=== PATIENT | male | born 1980 | race Hispanic/Latino ===

== ENCOUNTER 2024-09-14 12:34 | Emergency (ER) | payer OTHER ==
[~2024-09-14] VITALS: Ht 175.3 cm; Wt 83.9 kg
[2024-09-14 12:35] VITALS: BP 118/82; PULSE 95; RESP 20; TEMP 101.4
[2024-09-14] MEDS: dexaMETHasone SOD PHOSPHATE 4 MG/ML 1ML VIAL IVP ONE (13:13)
[2024-09-14 13:23] LABS: BASOPHILS # (AUTO) 0.03 K/uL (0.00-0.20); BASOPHILS % (AUTO) 0.6 % (0.0-5.0); EOSINOPHILS # (AUTO) 0.02 K/uL (0.00-0.70); EOSINOPHILS % (AUTO) 0.4 % (0.0-8.0); HEMATOCRIT 45.7 % (42-54); IMMATURE GRANULOCYTE ABSOLUTE 0.02 K/uL (0-1); LYMPHOCYTES # (AUTO) 0.4 K/uL (1.0-4.8); LYMPHOCYTES % (AUTO) 7.6 % (21.0-51.0); MEAN CORPUSCULAR HEMOGLOBIN 29.9 pg (27.0-33.0); MEAN CORPUSCULAR HGB CONC 34.1 g/dL (32.0-36.0); MEAN CORPUSCULAR VOLUME 87.5 fL (79-99); MONOCYTES # (AUTO) 0.7 K/uL (0.1-1.0); MONOCYTES % (AUTO) 12.7 % (3.0-13.0); NEUTROPHILS # (AUTO) 4.2 K/uL (1.8-7.7); NEUTROPHILS % (AUTO) 78.3 % (40.0-77.0); PLATELET COUNT (AUTO) 223 K/uL (130-400); RED BLOOD CELL COUNT(AUTO) 5.22 MIL/uL (4.50-6.20); RED CELL DISTRIBUTION WIDTH 11.9 % (11.0-15.5); WHITE BLOOD COUNT (AUTO) 5.3 K/uL (4.8-10.8)
[2024-09-14 13:27] LABS: CREATININE 1.3 mg/dL (0.5-1.3); POTASSIUM 3.8 mmol/L (3.5-5.1)
--- NOTE | 2024-09-14 13:40 | ERN ---
ED Note History of Present Illness Stated Complaint: FLU LIKE SYMPTOMS Chief Complaint: Flu Symptoms Time Seen by MD: 12:44 Dictation: Patient is a 44-year-old male who presents to the ED with flu-like symptoms. He admits to having fevers, chills, joint pain, sore throat and cough. He also feels slightly nauseated, with a reduced appetite but denies any vomiting. His symptoms have lasted a few days and [id number] antihistamines and fever reducers have helped but not resolved symptoms. Patient also admits to having sinus pressure and left-sided ear pain. Allergies: Coded Allergies: No Known Drug Allergies (Unverified Allergy, Unknown, 09/14/24) Home Meds Active Scripts Ibuprofen (Ibuprofen 200 mg Tablet) 200 Mg Tablet, 2 TAB PO QID for pain or fever for 5 Days, #40 TAB 0 Refills Prov:JO CENTENO MD 09/14/24 Oseltamivir Phosphate (Tamiflu) 75 Mg Cap, 1 CAP PO BID for 5 Days, #10 CAP 0 Refills Prov:JO CENTENO MD 09/14/24 Doxycycline Hyclate (Doxycycline Hyclate) 100 Mg Tablet, 1 TAB PO BID for 10 Days, #20 TAB 0 Refills Prov:JO CENTENO MD 09/14/24 Past Medical History Past Medical History: No Pertinent History Surgical History: None Review of System Dictation Constitutional-no weight loss/gain. Positive for fevers, chills. Eyes-no injury, pain, redness and discharge ENT-no injury, swelling. Left ear pain. Cardiovascular no chest pain, palpitations, edema Respiratory no shortness of breath, wheezing. Positive for cough. Abdomen/GI-no abdominal pain, diarrhea, vomiting. Positive for nausea and constipation. Back no injury and pain Genitourinary no injury, bleeding and discharge Musculoskeletal/extremities no injury, deformity. Positive or joint pains and generalized muscle aches. Skin no rash, discoloration Neuro-no headache, weakness, numbness, tingling, seizures, tremors Psych-no suicidal ideation, homicidal ideation, hallucinations, depression, anxiety, memory loss Initial Vital Sign VS Vital Signs Date Time Temp Pulse Resp B/P (MAP) Pulse Ox O2 Delivery O2 Flow Rate FiO2 09/14/24 12:35 101.5 95 20 118/82 99 Room Air 0 Physical Exam Dictation General-patient is awake alert and oriented Head/neck-normocephalic, atraumatic Eyes-PERRL, EOMI, vision at baseline. Watery eyes. Neck-trachea midline, supple, no nuchal rigidity.Tenderness to palpation of submandibular nodes. Cardiovascular-RRR, normal S1/S2, no MRG is, no JVD Respiratory-no distress, wheezing, rales, rhonchi Abdomen-no tenderness, guarding, soft, nondistended Skin warm, dry, normal turgor, no rash Musculoskeletal/extremities pulses equal, no cyanosis Neuro-COA X 4, GCS 15, strength 5/5, CN 2-12 intact Psych-normal behavior, mood and affect normal Results (Laboratory/Radiology) Laboratory/Radiology Laboratory Tests Test 09/14/24 12:38 09/14/24 13:12 Influenza Type A Antigen Positive For Type A Influenza Type B Antigen Negative For Type B SARS-CoV-2 Antigen (Rapid) PRESUMPTIVE NEGATIVE Group A Streptococcus Rapid negative (NEGATIVE) White Blood Count 5.3 K/uL (4.8-10.8) Red Blood Count 5.22 MIL/uL (4.50-6.20) Hemoglobin 15.6 g/dL (14.0-18.0) Hematocrit 45.7 % (42-54) Mean Corpuscular Volume 87.5 fL (79-99) Mean Corpuscular Hemoglobin 29.9 pg (27.0-33.0) Mean Corpuscular Hemoglobin Concent 34.1 g/dL (32.0-36.0) Red Cell Distribution Width 11.9 % (11.0-15.5) Platelet Count 223 K/uL (130-400) Mean Platelet Volume 10.1 fL (7.5-10.5) Immature Granulocyte % (Auto) 0.4 % (0-1) Neutrophils (%) (Auto) 78.3 % (40.0-77.0) H Lymphocytes (%) (Auto) 7.6 % (21.0-51.0) L Monocytes (%) (Auto) 12.7 % (3.0-13.0) Eosinophils (%) (Auto) 0.4 % (0.0-8.0) Basophils (%) (Auto) 0.6 % (0.0-5.0) Neutrophils # (Auto) 4.2 K/uL (1.8-7.7) Lymphocytes # (Auto) 0.4 K/uL (1.0-4.8) L Monocytes # (Auto) 0.7 K/uL (0.1-1.0) Eosinophils # (Auto) 0.02 K/uL (0.00-0.70) Basophils # (Auto) 0.03 K/uL (0.00-0.20) Absolute Immature Granulocyte (auto 0.02 K/uL (0-1) Nucleated Red Blood Cells 0.0 % (0.0-0.19) White Cell Morphology Comment See comments Sodium Level 142 mmol/L (136-145) Potassium Level 3.8 mmol/L (3.5-5.1) Chloride Level 104 mmol/L (101-111) Carbon Dioxide Level 31 mmol/L (21-32) Blood Urea Nitrogen 8 mg/dL (7-18) Creatinine 1.3 mg/dL (0.5-1.3) Glomerular Filtration Rate Calc 70 mL/min (>90) Random Glucose 102 mg/dL (70-105) Total Calcium 9.0 mg/dL (8.5-10.1) X-RAY Comment: CXR: FINDINGS: Single view of the chest was obtained. Lungs are clear. Heart size is normal. There is no pulmonary vascular congestion. Mediastinum and bony thorax appear unremarkable. IMPRESSION: 1. Normal single view chest x-ray. ED Course ED Course Orders Procedure Category Date Status Time Influenza Type A & B, LAB 09/14/24 Complete Rapid 12:45 Rapid (Group A Strep) LAB 09/14/24 Complete 12:45 Covid19 (Sars Antigen LAB 09/14/24 Complete Rapid) 12:45 Cbc With Differential LAB 09/14/24 Complete 12:56 Chest 1vw RAD 09/14/24 Resulted 12:56 Dexamethasone 4mg/Ml PHA 09/14/24 Complete 1ml Vial (Dexametha 13:00 Basic Metabolic Panel LAB 09/14/24 Complete 12:56 Oseltamivir Phosphate PHA 09/14/24 Complete (Tamiflu) 15:00 Current Medications Medications (Trade) Dose Ordered Sig/Freddie Route PRN Reason Start Time Stop Time Status Last Admin Dose Admin Dexamethasone Sodium Phosphate (dexaMETHasone 4MG/ML 1ML VIAL) 6 mg ONCE ONCE IVP 09/14/24 13:00 09/14/24 13:01 DC 09/14/24 13:13 Oseltamivir Phosphate (Tamiflu) 75 mg ONCE ONCE PO 09/14/24 15:00 09/14/24 15:01 DC 09/14/24 14:59 Vital Signs Date Time Temp Pulse Resp B/P (MAP) Pulse Ox O2 Delivery O2 Flow Rate FiO2 09/14/24 12:35 101.5 95 20 118/82 99 Room Air 0 Medical Decision Making [facility] MDM INITIAL IMPRESSION Initial history and physical concerning for sinusitis, flu. Contributing medical problems: I have reviewed the triage nursing notes and vital signs. Initial plan: Laboratory evaluation and x-ray DATA REVIEW I have reviewed additional NN, repeat VS, and monitoring where indicated. Heart rate, blood pressure, and O2 saturation are acceptable. ED COURSE Interventions: Reassessment: DISPOSITION Final diagnostic impression: Influenza A viral infection I discussed my findings, clinical impression and treatment recommendations with the patient. My final plan for disposition was made based upon -mild risk of complications and potential morbidity of the patient's condition. -Discussion with the patient regarding management options. Patient will be discharged and advised to follow up with PCP as needed DX & DISP Disposition: Discharge Departure Impression: Primary Impression: Influenza A Additional Impression: Sinusitis Condition: Stable Scripts Ibuprofen (Ibuprofen 200 mg Tablet) 200 Mg Tablet 2 TAB PO QID for pain or fever for 5 Days, #40 TAB 0 Refills Prov: JO CENTENO MD 09/14/24 Oseltamivir Phosphate (Tamiflu) 75 Mg Cap 1 CAP PO BID for 5 Days, #10 CAP 0 Refills Prov: JO CENTENO MD 09/14/24 Doxycycline Hyclate (Doxycycline Hyclate) 100 Mg Tablet 1 TAB PO BID for 10 Days, #20 TAB 0 Refills Prov: JO CENTENO MD 09/14/24 Additional Instructions: Take antiviral and antibiotics as prescribed. Drink 1 cup of fluids every hour you are awake. Get plenty of rest. Stay home from work, school, or other public places for at least 24 hours after your fever is gone. Wash your hands often. FOLLOW-UP WITH PRIMARY CARE PROVIDER IN 1 TO 2 DAYS. TAKE MEDICATIONS DIRECTED HERE IN THE EMERGENCY ROOM. OKAY TO CONTINUE HOME MEDICATIONS UNLESS OTHERWISE DISCUSSED DURING YOUR VISIT IN THE EMERGENCY ROOM TODAY. RETURN TO YOUR NEAREST EMERGENCY ROOM IF SYMPTOMS WORSEN OR IF THERE IS NO IMPROVEMENT. CALL 911 IF YOU NEED IMMEDIATE ASSISTANCE. TAKE TYLENOL [id number] NEEDED AND IF NO CONTRAINDICATIONS ARE PRESENT. INCREASE ORAL HYDRATION. A WOUND CULTURE OR URINE CULTURE WAS ORDERED HERE IN THE EMERGENCY ROOM DEPARTMENT PLEASE FOLLOW-UP WITH PRIMARY CARE PROVIDER AND ADVISE THEM TO GET REPEAT PORTS FROM OUR FACILITY. IF YOU HAD ANY ADRYAN WRAP/SPLINTS THAT WERE APPLIED HERE, PLEASE DO NOT REMOVE THEM UNTIL YOU SEE YOUR PRIMARY CARE OR SPECIALTY. Referrals: SELF,REFERRAL (PCP) Time of Disposition: 14:54 I have reviewed I have reviewed the case I have examined patient JO CENTENO MD Sep 14, 2024 13:40
[2024-09-14 14:11] LABS: RAPID GROUP A STREP negative (NEGATIVE)
[2024-09-14 14:22] LABS: COVID19 (SARS ANTIGEN RAPID) PRESUMPTIVE NEGATIVE (NEGATIVE); INFLUENZA TYPE B Negative For Type B (NEGATIVE)
[2024-09-14 14:31] LABS: INFLUENZA TYPE A Positive For Type A (NEGATIVE)
--- NOTE | 2024-09-14 14:42 | HMCIMG ---
CHEST 1VW REASON: COUOGH / CONGESTION COMPARISON: None. FINDINGS: Single view of the chest was obtained. Lungs are clear. Heart size is normal. There is no pulmonary vascular congestion. Mediastinum and bony thorax appear unremarkable. IMPRESSION: 1. Normal single view chest x-ray.
[2024-09-14] MEDS ORDERED: OSEL75 PO (14:53)
[2024-09-14] MEDS ORDERED: DOXY100T2 PO (14:53)
[2024-09-14] MEDS: OSELTAMIVIR PHOSPHATE 75 MG CAP PO ONE (14:59)
[2024-09-14] MEDS ORDERED: IBUP-2784 PO (14:59)
== END 2024-09-14 15:13 | disposition home or self-care (01) ==
LOC: EDH 12:34
DX: J10.1 Influenza due to other identified influenza virus with other respiratory manifestations (principal); J32.9 Chronic sinusitis, unspecified; Z20.822 Contact with and (suspected) exposure to COVID-19
CPT/HCPCS: 99284; 96374; 71045; 87426; 80048; 85025; 87880; 87804 ×2; 36415; J1100